=== PATIENT | female | born 1955 | race American Indian/Alaskan Native ===

== ENCOUNTER 2019-03-01 16:10 | Emergency (ER) | payer OTHER ==
[2019-03-01 17:21] VITALS: BP 140/73
--- NOTE | 2019-03-01 17:28 | Emergency Department Report ---
Chief Complaint: Psych Stated Complaint: MED REFILL Time Seen by Provider: 03/01/19 17:21 - HPI History of Present Illness: pt presents to the ED with c/o medication refill. pt states she is currently trying to get insurance approval to see a psychiatrist and is working on it currently. she tried to see them today but they did not have the proper authorization yet. pt denies any SI, HI, hallucinations. pt is on quetiapine fumarate 100 mg once nightly, paroxetine hcl 40 mg once in the morning, trazadone 150 mg once nightly, and bupropion hcl xr 300 mg once daily. pt brought all of her medication bottles with her. - Exam Vital Signs: Vital Signs 03/01/19 17:20 Temperature 97.9 F Pulse Rate 81 Respiratory 20 Rate Blood Pressure 140/73 O2 Sat by Pulse 97 Oximetry MSE screening note: Focused history and physical exam performed. ED Medical Decision Making - Medical Decision Making pt presents to the ED with c/o medication refill. pt states she is currently trying to get insurance approval to see a psychiatrist and is working on it currently. she tried to see them today but they did not have the proper authorization yet. pt denies any SI, HI, hallucinations. pt is on quetiapine fumarate 100 mg once nightly, paroxetine hcl 40 mg once in the morning, trazadone 150 mg once nightly, and bupropion hcl xr 300 mg once daily. pt brought all of her medication bottles with her. discussed medications with Dr. Tammie Cota, attending ER physician she advised to refill 10 days worth of her medication and have pt follow up with a psychiatrist or pcp as an outpatient. discussed with pt to please follow up with a psychiatrist for future refill of medications. return to the emergency room immediately or call 911 if begin experiencing thoughts of wanting to hurt yourself or others. pt given referral to [facility]. ED Disposition for MSE Clinical Impression: Medication refill Disposition: - TO HOME OR SELFCARE Is pt being admited?: No Does the pt Need Aspirin: No Condition: Stable Additional Instructions: please follow up with a psychiatrist for refill of medications. return to the emergency room immediately or call 911 if begin experiencing thoughts of wanting to hurt yourself or others. Prescriptions: PARoxetine HCl [PARoxetine] 40 mg PO QAM 10 Days #10 tablet QUEtiapine [SEROquel] 100 mg PO QPM 10 Days #10 tablet Trazodone HCl 150 mg PO QPM 10 Days #10 tablet Bupropion HCl [Wellbutrin XL] 300 mg PO DAILY 10 Days #10 tab.er.[id number] [facility] Time of Disposition: 17:24 Print Language: SCOTTISH
== END 2019-03-01 17:30 | disposition home or self-care (01) ==
LOC: ED 16:10
DX: R41.82 Altered mental status, unspecified (principal); Z76.0 Encounter for issue of repeat prescription; Z88.6 Allergy status to analgesic agent; Z88.2 Allergy status to sulfonamides
CPT/HCPCS: 99282